=== PATIENT | female | born 1975 | race Caucasian/White ===

== ENCOUNTER 2021-11-29 01:12 | Day surgery (SDC) | payer OTHER, SELFPAY ==
[2021-11-07 14:51] VITALS: BMI 30.6
--- NOTE | 2021-11-28 14:48 | P.PNAN_ITS ---
Anes - Initial Pre Proc Eval Procedure: Operation Date: 11/29/21 08:30 Proposed Procedures p Colonoscopy - Abhay Cardozo MD Date/Time: 11/28/21 14:48 Surgeon: Abhay Cardozo MD Pre Op Diagnosis: diverticulitis Patient Data Age: 45 Gender: F Height: 1.7 m Weight: 88.6 kg Allergies Allergy/AdvReac Type Severity Reaction Status Date / Time No Known Allergies Allergy Unknown Verified 11/29/21 07:30 Home Medications Medication Instructions Recorded Confirmed Type levonorgestrel 20 mcg/24 hours (7 1 ea intrauterine ONCE 11/07/21 11/07/21 History yrs) 52 mg intrauterine device (Mirena) Patient hx anesthesia problems: none Family hx anesthesia problems: none Results Review: All pre-operative results and documents have been reviewed as part of the pre-operative evaluation. [facility] Past Medical History Medical History (Updated 11/28/21 @ 16:29 by Abhay Cardozo MD) Obesity cardiomyopathy Social History Social History Smoking status: Former smoker Tobacco type: cigarettes Alcohol intake: current Drinks per week: 2 Living arrangements: with family Spiritual care concerns: No Anes - Eval Final PreProcedure Day of Procedure 11/28/21 14:48 Patient weight: obese Heart: regular rate and rhythm Lungs: clear to auscultation and normal air movement Airway: Mallampati scale class II Neurological: alert and oriented Last oral intake: >/= 8 hours ASA classification: II Emergent: no Anesthetic plan: proceed Anesthesia type and monitoring: general GIVS Results Review: All pre-operative results and documents have been reviewed as part of the pre- operative evaluation. Informed Consent: The patient's anesthetic plan and its attendant risks and benefits were discussed with the patient/family/POA. Questions were solicited and answers provided to the satisfaction of the patient/family/POA.
--- NOTE | 2021-11-28 16:28 | PM.HPGS ---
History of Present Illness History of Present Illness Consent: Risks, benefits, and alternatives have been discussed and questions answered. Patient agrees to proceed with procedure. Chief complaint: diverticulitis Narrative: Karina Liang is a 45 year old female referred for colonoscopy due to abnormal CT scan suggestive of diverticulitis. She has been having abdominal pain when she was referred for CT imaging. her pain was in the left lower quadrant. After few days an antibiotic she felt better. She eats a high-fiber diet, in fact she is a vegetarian. Review of Systems Review of Systems: All systems reviewed & are unremarkable except as noted in HPI and below PMFSH Past Medical History Medical History Obesity cardiomyopathy Social History Social History Smoking status: Former smoker Tobacco type: cigarettes Alcohol intake: current Drinks per week: 2 Living arrangements: with family Spiritual care concerns: No Meds Home Medications and Allergies Home Medications Medication Instructions Recorded Confirmed Type levonorgestrel 20 mcg/24 hours (7 1 ea intrauterine ONCE 11/07/21 11/07/21 History yrs) 52 mg intrauterine device (Mirena) Allergies Allergy/AdvReac Type Severity Reaction Status Date / Time No Known Allergies Allergy Unknown Verified 11/29/21 07:30 Exam Resp: Auscultation: clear to auscultation bilaterally Cardio: Rate: regular rate Rhythm: regular rhythm GI: GI Palp: Yes Soft to palpation and No Tenderness to palpation present (GI) Assessment and Plan Assessment and plan (1) Diverticulitis: Code(s): K57.92 - Diverticulitis of intestine, part unspecified, without perforation or abscess without bleeding Status: Acute Assessment and Plan: Colonoscopy with possible biopsy or polypectomy or cautery or injection of substances.
[2021-11-29 07:31] VITALS: BP 113/70; PULSE 56; RESP 17; TEMP 36.2; O2SAT 100
[2021-11-29] MEDS: LACTATED RINGERS 1,000 ML 150 ML IV CONT (07:41)
[2021-11-29 08:40] VITALS: BP 107/69; PULSE 69; RESP 23; O2SAT 100
[2021-11-29 08:50] VITALS: BP 126/87; PULSE 54; RESP 21; O2SAT 100
[2021-11-29 09:00] VITALS: BP 122/84; PULSE 55; RESP 23; O2SAT 99
== END 2021-11-29 09:09 | disposition home or self-care (01) ==
PROVIDERS: PCP Internal Medicine; Visit Provider Internal Medicine Gastroenterology
PROC: 0DJD8ZZ Inspection of Lower Intestinal Tract, Via Natural or Artificial Opening Endoscopic (ICD-10-PCS; CPT 45378; principal; 2021-11-29 08:30)
DX: K57.30 Diverticulosis of large intestine without perforation or abscess without bleeding (principal); Z87.19 Personal history of other diseases of the digestive system; Z87.891 Personal history of nicotine dependence; E66.9 Obesity, unspecified; Z68.29 Body mass index [BMI] 29.0-29.9, adult
CPT/HCPCS: 45378; J2704; J7120

== ENCOUNTER 2025-02-11 15:05 | Outpatient (CLI) | payer OTHER, SELFPAY ==
--- NOTE | ~2025-02-11 | MR_ITS ---
EXAMINATION: MR foot RT wo con DATE: 02/11/2025 15:50 INDICATION: Right foot pain TECHNIQUE: Magnetic resonance imaging (MRI) of the right foot was performed without intravenous contrast. Sequences included sagittal T1-weighted FSE, sagittal fluid sensitive FSE STIR, coronal PD-weighted FS FSE, coronal T1- weighted FSE, axial PD-weighted FS FSE, and axial PD-weighted FSE. COMPARISON: None FINDINGS: Bone alignment is normal. Low signal intensity bone island at the anterior process of the calcaneus. No fracture or pathologic marrow replacing process. Mild osteoarthritis at the first metatarsophalangeal joint with mild subarticular edema-like signal change at the plantar head of the first metatarsal its articulation with the tibial sesamoid. Additional mild osteoarthritis at the third and fourth tarsometatarsal joints. No erosions to suggest inflammatory arthritis. The visualized portions of the flexor and extensor tendons are normal. The Lisfranc ligament complex as well as the collateral ligament complex at the metatarsophalangeal and interphalangeal joints are normal. The anterior talofibular ligament is attenuated consistent with sequela of chronic sprain. Physiologic amount fluid in the joint spaces. No abnormal fluid collections identified. Small plantar calcaneal spur. There is a partial-thickness tear at the origin of the central component of the plantar aponeurosis which appears attenuated for approximately 1.5 cm proximal to the retracted portion of the aponeurosis. There is mild surrounding soft tissue edema. IMPRESSION: 1. Plantar and. He with partial thickness avulsion and distal retraction of a portion of the central component of the plantar aponeurosis. 2. 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 Reviewed, dictated and finalized at location A. IMPRESSION: 1. Plantar and. He with partial thickness avulsion and distal retraction of a p ortion of the central component of the plantar aponeurosis. 2. Likely chronic sprain of the anterior talofibular ligament which appears sig nificantly attenuated.
== END 2025-02-11 15:06 | disposition home or self-care (01) ==
PROVIDERS: PCP Internal Medicine; Visit Provider Podiatrist Foot & Ankle Surgery
DX: M72.2 Plantar fascial fibromatosis (principal); M84.374A Stress fracture, right foot, initial encounter for fracture
CPT/HCPCS: 73718